=== PATIENT | male | born 1965 | race Caucasian/White ===

== ENCOUNTER → 2021-06-17 | Outpatient (CLI) | payer OTHER ==
[~2021-06-17] MED LIST: TEMA15CA PO
== END | disposition home or self-care (01) ==
LOC: ROC 06-10 14:55
PROVIDERS: ATTEND Radiology Radiation Oncology
DX: C34.2 Malignant neoplasm of middle lobe, bronchus or lung (principal); J96.10 Chronic respiratory failure, unspecified whether with hypoxia or hypercapnia; J44.9 Chronic obstructive pulmonary disease, unspecified; F17.210 Nicotine dependence, cigarettes, uncomplicated; I11.0 Hypertensive heart disease with heart failure; I50.9 Heart failure, unspecified; E11.9 Type 2 diabetes mellitus without complications; Z79.51 Long term (current) use of inhaled steroids; Z79.82 Long term (current) use of aspirin; Z79.899 Other long term (current) drug therapy
CPT/HCPCS: 99214; G0463

== ENCOUNTER 2021-06-23 18:44 | Emergency (ER) | payer OTHER ==
[~2021-06-23] VITALS: Ht 175.3 cm; Wt 85.1 kg
[~2021-06-23 18:44] MED LIST changes: -ALBU0.63 NEB; -ASPI-963 PO; -ATOR40TA78 PO; -BUDE10.22 INH; -CARV12.52 PO; -CYCL10TA2 PO; -LISI-170 PO; -METF500T17 PO; -PRAV40TA2 PO; -SPIR25TA5 PO
[2021-06-23 18:49] VITALS: BP 136/87
--- NOTE | 2021-06-23 21:25 | NUR ---
PT CALLED FOR ROOM. NA X 1
--- NOTE | 2021-06-23 21:44 | NUR ---
NA X 2
--- NOTE | 2021-06-23 22:35 | NUR ---
NA X 3
== END 2021-06-23 22:36 | disposition left against medical advice (07) ==
LOC: ED 19:00
DX: R79.9 Abnormal finding of blood chemistry, unspecified (principal); Z53.21 Procedure and treatment not carried out due to patient leaving prior to being seen by health care provider

== ENCOUNTER → 2021-06-23 | Outpatient (CLI) | payer OTHER ==
[~2021-06-23] MED LIST changes: +ALBU0.63 NEB; +ASPI-963 PO; +ATOR40TA78 PO; +BUDE10.22 INH; +CARV12.52 PO; +CYCL10TA2 PO; +LISI-170 PO; +METF500T17 PO; +PRAV40TA2 PO; +SPIR25TA5 PO
[2021-06-23 07:45] LABS: MICROSCOPIC NOT IND
[2021-06-23 07:56] LABS: BASOPHILS % (AUTO) 0 % (0-1); EOSINOPHILS % (AUTO) 1 % (1-7); LYMPHOCYTES % (AUTO) 10 % (22-44); MEAN CORPUSCULAR HEMOGLOBIN 31.5 pg (27.5-34.5); MEAN CORPUSCULAR HGB CONC 32.8 g/dL (33.2-36.2); MEAN PLATELET VOLUME 8.2 fL (7.4-10.4); MONOCYTES % (AUTO) 11 % (2-9); NEUTROPHILS % (AUTO) 78 % (42-75); PLATELET COUNT 309 x10^3/uL (130-400); RED BLOOD COUNT 4.25 x10^6/uL (4.38-5.82); RED CELL DISTRIBUTION WIDTH 13.9 % (9.4-14.8)
[2021-06-23 07:57] LABS: ALANINE AMINOTRANSFERASE 24 U/L (12-78); CALCIUM 9.2 mg/dL (8.5-10.1); CHLORIDE 85 mmol/L (98-107); CHOLESTEROL, TOTAL 123 mg/dL (140-239); CREATININE 0.51 mg/dL (0.7-1.3)
[2021-06-23 08:07] LABS: ALKALINE PHOSPHATASE 151 U/L (45-117); BILIRUBIN,TOTAL 0.4 mg/dL (0.2-1.0); CHOL/HDL RATIO 2.7; HDL CHOL % 37 % (26-37); HDL CHOLESTEROL (DIRECT) 46 mg/dL (40-60); LDL CHOLESTEROL,CALCULATED 59 mg/dL (54-169); LDL/HDL RATIO 1.3 (0.5-3.0); TOTAL PROTEIN 7.8 g/dL (6.4-8.2); TRIGLYCERIDES 88 mg/dL (50-200); VLDL CHOLESTEROL 18 mg/dL (0-25)
[2021-06-23 08:19] LABS: ANION GAP 1 mmol/L (5-15)
== END | disposition home or self-care (01) ==
LOC: LAB 07:16
PROVIDERS: ATTEND Family Medicine
DX: C34.90 Malignant neoplasm of unspecified part of unspecified bronchus or lung (principal); I11.0 Hypertensive heart disease with heart failure; E78.5 Hyperlipidemia, unspecified; I50.9 Heart failure, unspecified; J44.9 Chronic obstructive pulmonary disease, unspecified
CPT/HCPCS: 36415; 80053; 80061; 81003; 83036; 83880; 84443; 85025

== ENCOUNTER 2021-06-24 12:04 | Inpatient (IN) | payer OTHER ==
[~2021-06-24] VITALS: Ht 175.3 cm; Wt 85.0 kg
[2021-06-24 13:13] LABS: BASOPHILS % (AUTO) 0 % (0-1); EOSINOPHILS % (AUTO) 1 % (1-7); LYMPHOCYTES % (AUTO) 10 % (22-44); MEAN CORPUSCULAR HEMOGLOBIN 31.4 pg (27.5-34.5); MEAN CORPUSCULAR HGB CONC 32.9 g/dL (33.2-36.2); MEAN PLATELET VOLUME 8.1 fL (7.4-10.4); MONOCYTES % (AUTO) 10 % (2-9); NEUTROPHILS % (AUTO) 79 % (42-75); PLATELET COUNT 302 x10^3/uL (130-400); RED BLOOD COUNT 3.98 x10^6/uL (4.38-5.82); RED CELL DISTRIBUTION WIDTH 13.5 % (9.4-14.8)
[2021-06-24 13:23] LABS: CHLORIDE 85 mmol/L (98-107)
[2021-06-24 13:27] LABS: ALANINE AMINOTRANSFERASE 21 U/L (12-78); ALKALINE PHOSPHATASE 150 U/L (45-117); BILIRUBIN,TOTAL 0.4 mg/dL (0.2-1.0); TOTAL PROTEIN 7.2 g/dL (6.4-8.2)
--- NOTE | 2021-06-24 13:45 | NUR ---
stator tester note: Pt to room from lobby.
[2021-06-24 13:51] LABS: ANION GAP 3 mmol/L (5-15)
--- NOTE | 2021-06-24 14:28 | NUR ---
[facility] pt[facility]. Sent by for abnormal lab work, currently being treated for Lung CA. On O2 at baseline. Pt denies symptoms. 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
[2021-06-24] MEDS ORDERED: ALBUTEROL/IPRATROPIUM 2.5MG/0.5MG, 3 ML NPPB ONE ×2 (14:30→16:00)
[2021-06-24] MEDS ORDERED: methylPREDNISolone SOD SUCC 125 MG/2 ML IV ONE (14:30)
[2021-06-24] MEDS ORDERED: methylPREDNISolone SOD SUCC 125 MG/2 ML ONE (14:35)
[2021-06-24] MEDS ORDERED: ALBUTEROL/IPRATROPIUM 2.5MG/0.5MG, 3 ML ONE ×2 (14:35→16:37)
[2021-06-24 14:58] LABS: MICROSCOPIC INDICATED
--- NOTE | 2021-06-24 15:51 | NUR ---
Pt unhooked his o2 to go to the restroom. Pt spo2 at 85%. pt put back on o2 now at 90%. notified
[2021-06-24] MEDS ORDERED: ACETAMINOPHEN 500 MG TABLET ONE (17:00)
[2021-06-24] MEDS ORDERED: ACETAMINOPHEN 325 MG TABLET PO PRN (19:00)
[2021-06-24 19:28] LABS: TROPONIN I < 0.015 ng/mL (0.000-0.045)
[2021-06-24 20:55] VITALS: BP 132/81
[2021-06-24] MEDS: CARVEDILOL 12.5 MG TABLET PO SCH (21:00)
[2021-06-24] MEDS: ALBUTEROL SULFATE 2.5 MG/3 ML NPPB SCH ×2 (21:00→21:18)
[2021-06-24] MEDS: BUDESONIDE 0.5 MG/2 ML INHA INH SCH ×2 (21:00→21:18)
[2021-06-24] MEDS: ATORVASTATIN 40 MG TABLET PO SCH (21:00)
[2021-06-24] MEDS: LISINOPRIL 20 MG TABLET PO SCH (21:00)
[2021-06-24] MEDS: methylPREDNISolone SOD SUCC 125 MG/2 ML IVPush SCH (21:01)
[2021-06-24] MEDS: INSULIN LISPRO 100 UNITS/ML, PEN SQ-INSULIN SCH (22:28)
[2021-06-24 23:39] LABS: MICROSCOPIC NOT IND
[2021-06-24 23:52] LABS: AMPHETAMINE SCREEN, URINE Negative (Negative); BARBITURATE SCREEN, URINE Negative (Negative); BENZODIAZEPINE SCREEN, URINE Negative (Negative); CANNABINOID SCREEN, URINE Negative (Negative); COCAINE SCREEN, URINE Negative (Negative); METHADONE SCREEN, URINE Negative (Negative); OPIATE SCREEN, URINE Negative (Negative)
[2021-06-25 01:01] VITALS: BP 122/77
[2021-06-25 01:04] LABS: BASOPHILS % (AUTO) 0 % (0-1); EOSINOPHILS % (AUTO) 0 % (1-7); LYMPHOCYTES % (AUTO) 6 % (22-44); MEAN CORPUSCULAR HEMOGLOBIN 31.3 pg (27.5-34.5); MEAN CORPUSCULAR HGB CONC 32.7 g/dL (33.2-36.2); MEAN PLATELET VOLUME 7.7 fL (7.4-10.4); MONOCYTES % (AUTO) 2 % (2-9); NEUTROPHILS % (AUTO) 92 % (42-75); PLATELET COUNT 254 x10^3/uL (130-400); RED CELL DISTRIBUTION WIDTH 13.4 % (9.4-14.8)
[2021-06-25 01:07] LABS: TROPONIN I < 0.015 ng/mL (0.000-0.045)
[2021-06-25 01:09] LABS: ALANINE AMINOTRANSFERASE 23 U/L (12-78); ALBUMIN 2.8 g/dL (3.4-5.0); ANION GAP 5 mmol/L (5-15); CHLORIDE 88 mmol/L (98-107); CREATININE 0.58 mg/dL (0.7-1.3)
[2021-06-25 01:19] LABS: ALKALINE PHOSPHATASE 159 U/L (45-117); BILIRUBIN,TOTAL 0.3 mg/dL (0.2-1.0); TOTAL PROTEIN 7.1 g/dL (6.4-8.2)
[2021-06-25] MEDS ORDERED: ASPI-963 PO (01:36)
[2021-06-25] MEDS ORDERED: CARV12.52 PO (01:36)
[2021-06-25] MEDS ORDERED: ATOR40TA78 PO (01:36)
[2021-06-25] MEDS ORDERED: BUDE10.22 INH (01:36)
[2021-06-25] MEDS ORDERED: PRAV40TA2 PO (01:36)
[2021-06-25] MEDS ORDERED: ALBU0.63 NEB (01:36)
[2021-06-25] MEDS ORDERED: LISI-170 PO (01:36)
[2021-06-25] MEDS ORDERED: CYCL10TA2 PO (01:36)
[2021-06-25] MEDS ORDERED: METF500T17 PO (01:36)
[2021-06-25] MEDS ORDERED: SPIR25TA5 PO (01:36)
[2021-06-25] MEDS: CARVEDILOL 12.5 MG TABLET PO SCH ×2 (06:20→18:22)
[2021-06-25] MEDS: methylPREDNISolone SOD SUCC 125 MG/2 ML IVPush SCH ×3 (06:20→18:22)
[2021-06-25 07:45] VITALS: BP 124/77
[2021-06-25] MEDS: ENOXAPARIN 40 MG/0.4 ML SQ SCH (08:22)
[2021-06-25] MEDS: FUROSEMIDE 40 MG TABLET PO SCH (08:22)
[2021-06-25] MEDS: LISINOPRIL 20 MG TABLET PO SCH ×2 (08:22→20:31)
[2021-06-25] MEDS: SPIRONOLACTONE 25 MG TABLET PO SCH (08:22)
[2021-06-25] MEDS: ASPIRIN 81 MG TABLET CHEW PO SCH (08:22)
[2021-06-25] MEDS: INSULIN LISPRO 100 UNITS/ML, PEN SQ-INSULIN SCH ×4 (08:26→20:32)
[2021-06-25] MEDS: ALBUTEROL SULFATE 2.5 MG/3 ML NPPB SCH ×4 (09:00→20:50)
[2021-06-25] MEDS: BUDESONIDE 0.5 MG/2 ML INHA INH SCH ×2 (09:00→20:32)
[2021-06-25 15:28] VITALS: BP 148/89
[2021-06-25] MEDS ORDERED: TEMAZEPAM 15 MG CAPSULE PO PRN (19:30)
[2021-06-25 20:26] VITALS: BP 147/85
[2021-06-25] MEDS: ATORVASTATIN 40 MG TABLET PO SCH (20:31)
[2021-06-26] MEDS: methylPREDNISolone SOD SUCC 125 MG/2 ML IVPush SCH ×2 (02:10→09:51)
[2021-06-26 02:17] VITALS: BP 132/85
[2021-06-26 05:44] VITALS: BP 166/95
[2021-06-26] MEDS: CARVEDILOL 12.5 MG TABLET PO SCH (05:44)
[2021-06-26 06:31] VITALS: BP 159/89
[2021-06-26] MEDS: INSULIN LISPRO 100 UNITS/ML, PEN SQ-INSULIN SCH ×2 (08:00→12:44)
[2021-06-26] MEDS: BUDESONIDE 0.5 MG/2 ML INHA INH SCH (09:38)
[2021-06-26] MEDS: ALBUTEROL SULFATE 2.5 MG/3 ML NPPB SCH ×2 (09:38→15:16)
[2021-06-26] MEDS: SPIRONOLACTONE 25 MG TABLET PO SCH (09:50)
[2021-06-26] MEDS: FUROSEMIDE 40 MG TABLET PO SCH (09:50)
[2021-06-26] MEDS: ASPIRIN 81 MG TABLET CHEW PO SCH (09:50)
[2021-06-26] MEDS: ENOXAPARIN 40 MG/0.4 ML SQ SCH (09:50)
[2021-06-26] MEDS: LISINOPRIL 20 MG TABLET PO SCH (09:51)
[2021-06-26] MEDS ORDERED: METH4TAB PO (12:05)
[2021-06-26] MEDS ORDERED: GUAI12009 PO (12:05)
== END 2021-06-26 14:04 | disposition home or self-care (01) | DRG 189 ==
LOC: ED 17:26 → 3N 17:30 → 5SO 20:25
PROVIDERS: ADMIT Internal Medicine; ATTEND Internal Medicine
DX: J96.21 Acute and chronic respiratory failure with hypoxia (principal); C34.90 Malignant neoplasm of unspecified part of unspecified bronchus or lung; E87.2 Acidosis; I50.30 Unspecified diastolic (congestive) heart failure; J96.22 Acute and chronic respiratory failure with hypercapnia; J44.9 Chronic obstructive pulmonary disease, unspecified; I11.0 Hypertensive heart disease with heart failure; E78.5 Hyperlipidemia, unspecified; E11.9 Type 2 diabetes mellitus without complications; Z87.891 Personal history of nicotine dependence; Z79.82 Long term (current) use of aspirin; Z85.118 Personal history of other malignant neoplasm of bronchus and lung; Z79.899 Other long term (current) drug therapy
CPT/HCPCS: 36415; 36600; 84145; 96374; 99285; J7613; J7626; 71045; 80053; 80307; 81001; 81003; 82803; 82962; 83605; 84443; 84484; 85025; 87040; 93306; 93356; 94640; G0378; J1650; J1815; J2930

== ENCOUNTER 2021-07-01 08:38 | Outpatient (CLI) | payer OTHER ==
[~2021-07-01 08:38] MED LIST changes: +ALBU0.63 NEB; +ASPI-963 PO; +ATOR40TA78 PO; +BUDE10.22 INH; +CARV12.52 PO; +CYCL10TA2 PO; +GUAI12009 PO; +LISI-170 PO; +METF500T17 PO; +METH4TAB PO; +PRAV40TA2 PO; +SPIR25TA5 PO
== END 2021-07-01 23:59 | disposition home or self-care (01) ==
LOC: PETCFH 08:38
PROVIDERS: ATTEND Radiology Radiation Oncology
DX: C34.90 Malignant neoplasm of unspecified part of unspecified bronchus or lung (principal); R59.0 Localized enlarged lymph nodes; J18.1 Lobar pneumonia, unspecified organism; R91.8 Other nonspecific abnormal finding of lung field
CPT/HCPCS: 78815; A9552

== ENCOUNTER 2021-07-22 09:54 | Outpatient (CLI) | payer OTHER ==
[2021-07-22] MEDS ORDERED: OMNIPAQUE 350 MG/ML, 100ML BOTTLE ONE (10:15)
== END 2021-07-22 23:59 | disposition home or self-care (01) ==
LOC: CFH 09:54
PROVIDERS: ATTEND Internal Medicine Hematology & Oncology
DX: C34.31 Malignant neoplasm of lower lobe, right bronchus or lung (principal)
CPT/HCPCS: 70460; Q9967